=== PATIENT | male | born 1970 | race African-American/Black ===

== ENCOUNTER 2024-08-11 10:57 | Emergency (ER) | payer MEDICAID, OTHER ==
[~2024-08-11] VITALS: Ht 175.3 cm; Wt 77.0 kg
[2024-08-11] MEDS ORDERED: IBUP-1456 PO (22:45)
[2024-08-11] MEDS ORDERED: CLIN1CAP70 PO (22:45)
[2024-08-11] MEDS ORDERED: HUR60 MT (22:45)
== END 2024-08-11 14:33 | disposition left against medical advice (07) ==
LOC: ER 10:57
DX: R22.0 Localized swelling, mass and lump, head (principal); K08.89 Other specified disorders of teeth and supporting structures; Z53.21 Procedure and treatment not carried out due to patient leaving prior to being seen by health care provider

== ENCOUNTER 2024-08-11 20:20 | Emergency (ER) | payer MEDICAID ==
[~2024-08-11] VITALS: Ht 175.3 cm; Wt 79.4 kg
[2024-08-11 20:35] VITALS: TEMP 99.2
[2024-08-11] MEDS ORDERED: CLIN1CAP70 PO (22:45)
[2024-08-11] MEDS ORDERED: HUR60 MT (22:45)
[2024-08-11] MEDS ORDERED: IBUP-1456 PO (22:45)
[2024-08-11] MEDS: methylPREDNISolone SOD SUCC 125 MG/2 ML VL IM ONE (23:57)
[2024-08-11] MEDS: KETOROLAC TROMETH 60MG/2ML VIAL IM ONE (23:58)
[2024-08-11] MEDS: CLINDAMYCIN 900MG IV 50 ML IV ONE (23:58)
[2024-08-12 00:21] VITALS: BP 109/73; PULSE 70; RESP 18; O2SAT 95
== END 2024-08-12 00:30 | disposition home or self-care (01) ==
LOC: ER 20:20
DX: K04.7 Periapical abscess without sinus (principal); Z79.899 Other long term (current) drug therapy
CPT/HCPCS: 96365; 96372; 99284; J1885; J2919; J3490